=== PATIENT | female | born 1955 | race Caucasian/White ===

== ENCOUNTER 2023-02-24 10:36 | Emergency (ER) | payer MEDICARE, SELFPAY ==
[2023-02-24 10:44] VITALS: BP 132/71; PULSE 70; RESP 16; TEMP 37.1; O2SAT 97; BMI 28.2
--- NOTE | 2023-02-24 12:52 | XR_ITS ---
[address] [address] Patient Name: JULIO BIGGS MRN: [id number] date: 1955 Sex: F Assigned Patient Location: ER Current Patient Location: ER Accession/Order Number: [id number] Exam Date: 02/24/2023 13:12 Report Date: 02/24/2023 13:52 At the request of: NOMI MURRY Procedure: XR hip RT min 2V PROCEDURE: XR hip RT min 2V HISTORY: pain ; acute exacerbation of chronic right hip pain COMPARISON: None. FINDINGS: BONES:No fracture, acute abnormality, or significant arthropathy. SOFT TISSUES:No visible soft tissue swelling. EFFUSION:None visible. OTHER: Negative. IMPRESSION: 1. No acute bone abnormality. 2. Minimal degenerative joint disease of the right hip. Electronically authenticated by: MIMI BELCHER Date: 02/24/2023 13:52
--- NOTE | 2023-02-24 14:16 | ED_ITS ---
HPI - Extremity Problem General Chief complaint: Extremity Problem, Nontraumatic Stated complaint: HIP PAIN Time Seen by Provider: 02/24/23 14:08 Source: patient and family Mode of arrival: Wheelchair Limitations: language barrier and other Limitations comment: Deaf History of Present Illness HPI Narrative: Patient presents to emergency department complaining of right hip pain. Patient states she has a history of sciatica and is having an exacerbation. She sees pain management and [place] and takes Ultram. She took Ultram and it has not helped. Patient is here visiting a relative. Patient denies any trauma. She states the pain is in her lumbosacral region and radiates down to her right hip and gluteus. She denies any paresthesias, weakness. She denies any urinary, bowel incontinence, retention. She denies any fever, chills, cough, chest pain, shortness of breath. She has no history of IV drug abuse.States when the pain gets this bad she goes to see [facility] to give her a shot of steroids and something else and it helped to go away. Patient denies any flank pain, hematuria, dysuria. She denies any nausea, vomiting, diarrhea, constipation, or abdominal pain. Related Data Home Medications Medication Instructions Recorded Confirmed alendronate 70 mg tablet 70 mg PO .weekly 02/24/23 02/24/23 gabapentin 100 mg capsule 100 mg PO Q12H 02/24/23 02/24/23 lovastatin 20 mg tablet 20 mg PO DAILY 02/24/23 02/24/23 tramadol 50 mg tablet 50 mg PO Q6H PRN Pain 02/24/23 02/24/23 Allergies Allergy/AdvReac Type Severity Reaction Status Date / Time metformin Allergy Unknown Verified 02/24/23 10:50 Review of Systems ROS Status of ROS 10 or more systems reviewed and unremarkable except as noted in history and below Exam Narrative Exam Narrative: Nurses notes and vital signs reviewed and patient is not hypoxic. General: Nontoxic, Well-appearing, In pain, in no apparent distress. Skin: Warm, dry, no pallor noted. No Rash Head: Normocephalic, atraumatic. Neck: Supple, non-tender. Eye: Pupils are equal, round and EOMI. No scleral icterus. Ears, Nose, Mouth, and Throat: TM clear, no posterior oropharynx erythema or nasal mucosal hypertrophy, uvula is mid-line Oral mucosa is moist Cardiovascular: Regular Rate and Rhythm without murmur, gallop or rub. Respiratory: No accessory muscle use or respiratory distress. Lungs are clear to auscultation, no wheezing, rales or rhonchi Chest Wall: no tenderness Back: No midline thoracic or lumbar vertebral tenderness. No CVA tenderness, Tenderness to palpation to the right sacroiliac junction. Range of motion is limited by pain. There is no signs of erythema, ecchymosis Musculoskeletal: normal ROM, no calf or popliteal tenderness, no lower extremity edema/swelling GI: Abdomen is soft, non-distended. Normal bowel sounds. No masses appreciated. No tenderness to palpation. No rebound, guarding, or rigidity noted. Neurological: A&O x4. No cranial nerve dysfunction observed. No truncal ataxia. Moves all extremities. Sensation intact. Psychiatric: Cooperative and interactive. Normal mood and affect. Constitutional Vital Signs - 24 hr 02/24/23 10:44 Temperature 98.7 F Pulse Rate [Monitor] 70 Respiratory Rate 16 Blood Pressure [Left Arm] 132/71 H Pulse Oximetry 97 Oxygen Delivery Method Room Air Course Vital Signs Vital signs: Vital Signs Temperature 98.7 F 02/24/23 10:44 Pulse Rate 70 02/24/23 10:44 Respiratory Rate 16 02/24/23 10:44 Blood Pressure 132/71 H 02/24/23 10:44 Pulse Oximetry 97 02/24/23 10:44 Oxygen Delivery Method Room Air 02/24/23 10:44 Temperature 98.7 F 02/24/23 10:44 Pulse Rate 70 02/24/23 10:44 Respiratory Rate 16 02/24/23 10:44 Blood Pressure 132/71 H 02/24/23 10:44 Pulse Oximetry 97 02/24/23 10:44 Oxygen Delivery Method Room Air 02/24/23 10:44 MDM - Extremity (Nontraumatic) MDM Narrative Medical decision making narrative: Patient is given an injection of steroids and analgesics. Her pain improved.X- rays results reviewed with patient. Patient is advised follow-up with pain management and [facility]. She does not have any signs of acute cord compression syndrome. At this time the patient is without objective evidence of an acute process requiring hospitalization or inpatient management. The patient has remained hemodynamically stable. No additional indication for emergent studies at this time. I answered all questions. Discussed discharge instructions including standard anticipatory guidance and what should prompt a return to the emergency department, including if they get worse are not getting better or develops any new or concerning symptoms. I've given them specific time frame in which to follow-up, and who to follow-up with. The patient demonstrates understanding. Patient is nontoxic and stable for discharge with outpatient follow-up. This note was created with the assistance of a speech recognition program. Although the intention is to generate documents that actually reflects the content of the visit, no guarantees can be provided that every mistake has been identified and corrected by editing. Discharge Plan Discharge Chief Complaint: Extremity Problem, Nontraumatic Clinical Impression: Sciatica Patient Disposition: Home, Self-Care Time of Disposition Decision: 15:01 Condition: Good Mode of Transportation: Private Vehicle Prescriptions / Home Meds: No Action tramadol 50 mg tablet 50 mg PO Q6H PRN (Reason: Pain) lovastatin 20 mg tablet 20 mg PO DAILY gabapentin 100 mg capsule 100 mg PO Q12H alendronate 70 mg tablet 70 mg PO .weekly Instructions: Sciatica (ED) Additional Instructions: Follow-up with primary care doctor as discussed. Stand Alone Forms: Portal Instructions Referrals: Physician,Non-Staff, MD [Primary Care Provider] - 1 week Discharge Date/Time: 02/24/23 15:44
[2023-02-24] MEDS: MORPHINE SULFATE 4 MG/ML VIAL IM (14:34)
[2023-02-24] MEDS: DEXAMETHASONE SODIUM PHOSPHATE 10 MG/ML VIAL IM (14:35)
[2023-02-24] MEDS: HYDROMORPHONE HCL 1 MG/ML CARTRIDGE IM (15:12)
--- NOTE | 2023-02-27 07:45 | ED.EXTPRO1 ---
HPI - Extremity Problem General Chief complaint: Extremity Problem, Nontraumatic Stated complaint: HIP PAIN Time Seen by Provider: 02/24/23 14:08 Source: patient and family Mode of arrival: Wheelchair Limitations: language barrier and other Limitations comment: Deaf History of Present Illness HPI Narrative: Patient presents to emergency department complaining of right low back pain and hip pain. Patient states she has a history of sciatica and she sees pain management in [place]. She is here visiting her relatives. She takes Ultram at home and has not had any relief. She states she has not been able to walk cause of the pain. She denies any weakness. She denies any paresthesias, urinary, bowel incontinence, retention. She denies any fever, chills, cough, chest, shortness of breath. She denies any trauma. She states when she blows to the emergency department in [place] to give her a shot of a steroid is something else and that normally helps. Related Data Home Medications Medication Instructions Recorded Confirmed alendronate 70 mg tablet 70 mg PO .weekly 02/24/23 02/24/23 gabapentin 100 mg capsule 100 mg PO Q12H 02/24/23 02/24/23 lovastatin 20 mg tablet 20 mg PO DAILY 02/24/23 02/24/23 tramadol 50 mg tablet 50 mg PO Q6H PRN Pain 02/24/23 02/24/23 Allergies Allergy/AdvReac Type Severity Reaction Status Date / Time metformin Allergy Unknown Verified 02/24/23 10:50 Review of Systems ROS Status of ROS 10 or more systems reviewed and unremarkable except as noted in history and below Exam Narrative Exam Narrative: Nurses notes and vital signs reviewed and patient is not hypoxic. General: Nontoxic, Well-appearing, in pain, and in no apparent distress. Skin: Warm, dry, no pallor noted. No Rash Head: Normocephalic, atraumatic. Neck: Supple, non-tender. Eye: Pupils are equal, round and EOMI. No scleral icterus. Ears, Nose, Mouth, and Throat: TM clear, no posterior oropharynx erythema or nasal mucosal hypertrophy, uvula is mid-line Oral mucosa is moist Cardiovascular: Regular Rate and Rhythm without murmur, gallop or rub. Respiratory: No accessory muscle use or respiratory distress. Lungs are clear to auscultation, no wheezing, rales or rhonchi Chest Wall: no tenderness Back: No midline thoracic or lumbar vertebral tenderness. No CVA tenderness Musculoskeletal: normal ROM, no calf or popliteal tenderness, no lower extremity edema/swelling GI: Abdomen is soft, non-distended. Normal bowel sounds. No masses appreciated. No tenderness to palpation. No rebound, guarding, or rigidity noted. Neurological: A&O x4. No cranial nerve dysfunction observed. No truncal ataxia. Moves all extremities. Sensation intact. Psychiatric: Cooperative and interactive. Normal mood and affect. Course Vital Signs Vital signs: Vital Signs Temperature 98.7 F 02/24/23 10:44 Pulse Rate 70 02/24/23 10:44 Respiratory Rate 16 02/24/23 10:44 Blood Pressure 132/71 H 02/24/23 10:44 Pulse Oximetry 97 02/24/23 10:44 Oxygen Delivery Method Room Air 02/24/23 10:44 Temperature 98.7 F 02/24/23 10:44 Pulse Rate 70 02/24/23 10:44 Respiratory Rate 16 02/24/23 10:44 Blood Pressure 132/71 H 02/24/23 10:44 Pulse Oximetry 97 02/24/23 10:44 Oxygen Delivery Method Room Air 02/24/23 10:44 MDM - Extremity (Nontraumatic) MDM Narrative Medical decision making narrative: Patient was given steroids, and analgesics. Symptoms improved. The results discussed with patient. Patient is stable for outpatient follow-up and treatment.At this time the patient is without objective evidence of an acute process requiring hospitalization or inpatient management. No additional indication for emergent studies at this time. I answered all questions. Discussed discharge instructions including standard anticipatory guidance and what should prompt a return to the emergency department, including if they get worse are not getting better or develops any new or concerning symptoms. I've given them specific time frame in which to follow-up, and who to follow-up with. The patient demonstrates understanding. Patient is nontoxic and stable for discharge with outpatient follow-up. This note was created with the assistance of a speech recognition program. Although the intention is to generate documents that actually reflects the content of the visit, no guarantees can be provided that every mistake has been identified and corrected by editing. Discharge Plan Discharge Chief Complaint: Extremity Problem, Nontraumatic Clinical Impression: Sciatica Patient Disposition: Home, Self-Care Time of Disposition Decision: 15:01 Condition: Good Mode of Transportation: Private Vehicle Prescriptions / Home Meds: No Action tramadol 50 mg tablet 50 mg PO Q6H PRN (Reason: Pain) lovastatin 20 mg tablet 20 mg PO DAILY gabapentin 100 mg capsule 100 mg PO Q12H alendronate 70 mg tablet 70 mg PO .weekly Instructions: Sciatica (ED) Additional Instructions: Follow-up with primary care doctor as discussed. Stand Alone Forms: Portal Instructions Referrals: Physician,Non-Staff, MD [Primary Care Provider] - 1 week Discharge Date/Time: 02/24/23 15:44
== END 2023-02-24 15:44 | disposition home or self-care (01) ==
PROVIDERS: Emergency Provider Emergency Medicine
DX: M54.31 Sciatica, right side (principal); Z79.899 Other long term (current) drug therapy; H91.93 Unspecified hearing loss, bilateral
CPT/HCPCS: 73502; 96374; 96375; 99284; J1100; J1170